=== PATIENT | female | born 1965 | race Caucasian/White ===

== ENCOUNTER 2019-08-23 06:38 | Emergency (ER) | payer BC ==
[2019-08-23 07:26] LABS: Absolute Lymphocytes (CBC) 2.2 K/uL (0.7-4.9); Hematocrit 42.5 % (36.0-45.0); MPV 7.5 fL (7.6-11.3); RBC Red Blood Cell Count 4.54 M/uL (3.86-4.86)
[2019-08-23 07:38] LABS: Protime INR 0.93
[2019-08-23 07:50] LABS: ALT/SGPT 26 U/L (12-78); AST/SGOT 13 U/L (15-37); Albumin 3.5 g/dL (3.4-5.0); Alkaline Phosphatase 87 U/L (45-117); BUN Blood Urea Nitrogen 19 mg/dL (7-18); Bicarbonate 26 mmol/L (21-32); Bilirubin Direct 0.1 mg/dL (0-0.2); Bilirubin Total 0.3 mg/dL (0.2-1.0); Glucose Level 98 mg/dL (74-106); Magnesium 1.9 mg/dL (1.8-2.4); NT PRO-BNP 24 pg/mL (<125); Potassium 4.4 mmol/L (3.5-5.1); Protein, Total 6.1 g/dL (6.4-8.2); Sodium Level 141 mmol/L (136-145); Troponin (Emerg Dept Use Only) < 0.02 ng/mL (0.0-0.045)
--- NOTE | 2019-08-23 07:55 | RAD REPORT ---
EXAM DESCRIPTION: Ronit Single View08/23/2019 7:45 am CLINICAL HISTORY: Chest pain COMPARISON: none FINDINGS: The lungs are hyperaerated. The lungs appear clear of acute infiltrate. The heart is normal size IMPRESSION: Hyperaerated lungs may indicate COPD.
--- NOTE | 2019-08-23 08:07 | ER ---
Nurse's Notes [facility] Name: Pricila Whitley Age: 54 yrs Sex: Female : 1965 Arrival Date: 08/23/2019 Time: 06:42 Bed 20 Private MD: Diagnosis: Shortness of breath;Muscle spasm of back Presentation: 08/22 06:57 Chief complaint: Patient states: Shoulder pain radiating to the left arm. Patient C/O ao occasional chest pain, SOB. Coronavirus screen: Proceed with normal triage. Ebola Screen: Patient negative for fever greater than or equal to 101.5 degrees Fahrenheit, and additional compatible Ebola Virus Disease symptoms Patient denies exposure to infectious person. Patient denies travel to an Ebola-affected area in the 21 days before illness onset. Initial Sepsis Screen: Does the patient meet any 2 criteria? No. Patient's initial sepsis screen is negative. Does the patient have a suspected source of infection? No. Patient's initial sepsis screen is negative. Risk Assessment: Do you want to hurt yourself or someone else? Patient reports no desire to harm self or others. Onset of symptoms was August 22, 2019 at 06:00. 06:57 Method Of Arrival: Ambulatory ao 06:57 Acuity: AMERICO 3 ao Historical: - Allergies: 07:11 Benadryl; ao - Home Meds: 07:11 meloxicam oral oral [Active]; Vitamin B-12 Oral [Active]; Vitamin D Oral [Active]; ao Calcium Carbonate Oral [Active]; - PMHx: 07:14 Anemia; ao - PSHx: 07:11 Appendectomy; Cholecystectomy; Hysterectomy; ao - Immunization history:: Adult Immunizations up to date. - Social history:: Smoking status: Patient reports the use of cigarette tobacco products, smokes one pack cigarettes per day. Screenin:06 Abuse screen: Denies threats or abuse. Denies injuries from another. Nutritional ao screening: No deficits noted. Tuberculosis screening: No symptoms or risk factors identified. Fall Risk None identified. Assessment: 07:05 General: Appears in no apparent distress. comfortable, Behavior is calm, cooperative. rb1 Pain: Complains of pain in bilateral shoulders Pain radiates to left arm Pain currently is 4 out of 10 on a pain scale. Neuro: Level of Consciousness is awake, alert, obeys commands, Oriented to person, place, time, situation. Cardiovascular: Capillary refill < 3 seconds. Respiratory: Airway is patent Respiratory effort is even, unlabored, Respiratory pattern is regular, symmetrical. Respiratory: Reports shortness of breath occasionally. GI: No signs and/or symptoms were reported involving the gastrointestinal system. : No signs and/or symptoms were reported regarding the genitourinary system. Derm: Skin is pink, warm \T\ dry. 08:05 Reassessment: Patient appears in no apparent distress at this time. No changes from rb1 previously documented assessment. Vital Signs: 06:57 BP 108 / 73; Pulse 80; Resp 20; Temp 98.3(O); Pulse Ox 99% on R/A; Weight 74.84 kg; ao Height 5 ft. 6 in. (167.64 cm); Pain 7/10; 07:15 BP 109 / 73; Pulse 79; Resp 14; Pulse Ox 97% on R/A; Pain 4/10; rb1 08:15 BP 107 / 70; Pulse 78; Resp 13; Pulse Ox 100% on R/A; rb1 06:57 Body Mass Index 26.63 (74.84 kg, 167.64 cm) ao ED Course: 06:42 Patient arrived in ED. ds1 06:45 Husam Cooley PA is PHCP. jr8 06:45 Ervin Schwartz MD is Attending Physician. jr8 07:05 Triage completed. ao 07:05 Arm band placed on right wrist. Patient placed in an exam room, on pulse oximetry, ao Patient notified of wait time. 07:08 Judy Simmons, RN is Primary Nurse. rb1 07:14 Patient has correct armband on for positive identification. Pulse ox on. NIBP on. ao 07:15 Inserted saline lock: 22 gauge in right antecubital area, using aseptic technique. rb1 Blood collected. 07:45 XRAY Chest (1 view) In Process Unspecified. EDMS 08:40 No provider procedures requiring assistance completed. IV discontinued, intact, rb1 bleeding controlled, No redness/swelling at site. Pressure dressing applied. Administered Medications: 08:14 Drug: TORadol - Ketorolac 15 mg Route: IVP; Site: right antecubital; rb1 08:30 Follow up: Response: No adverse reaction rb1 Outcome: 08:06 Discharge ordered by . jr8 08:40 Discharged to home ambulatory. rb1 08:40 Condition: stable 08:40 Discharge instructions given to patient, Instructed on discharge instructions, follow up and referral plans. medication usage, Demonstrated understanding of instructions, follow-up care, medications, Prescriptions given X 1. 08:46 Patient left the ED. rb1 Signatures: Dispatcher [employer] [facility] LealViola ds1 Husam Cooley PA PA jr8 Judy Simmons RN RN rb1 Satnam Pitt RN RN ao
--- NOTE | 2019-08-23 08:07 | EDPHYS ---
Physician Documentation [facility] Name: Pricila Whitley Age: 54 yrs Sex: Female : 1965 Arrival Date: 08/23/2019 Time: 06:42 Bed 20 Private MD: ED Physician Ervin Schwartz HPI: 08/22 06:55 This 54 yrs old Female presents to ER via Unassigned with complaints of jr8 Shortness of breath/Shoulder Blade Pain-L Arm Pain. 06:55 The patient has shortness of breath with light activity. Onset: The symptoms/episode jr8 began/occurred gradually, 2 week(s) ago. Duration: The symptoms are intermittent. The patient's shortness of breath is aggravated by light activity. Associated signs and symptoms: Pertinent positives: pain between the shoulder blades . Severity of symptoms: At their worst the symptoms were moderate in the emergency department the symptoms are unchanged. The patient has not experienced similar symptoms in the past. The patient has not recently seen a physician. Historical: - Allergies: 07:11 Benadryl; ao - Home Meds: 07:11 meloxicam oral oral [Active]; Vitamin B-12 Oral [Active]; Vitamin D Oral [Active]; ao Calcium Carbonate Oral [Active]; - PMHx: 07:14 Anemia; ao - PSHx: 07:11 Appendectomy; Cholecystectomy; Hysterectomy; ao - Immunization history:: Adult Immunizations up to date. - Social history:: Smoking status: Patient reports the use of cigarette tobacco products, smokes one pack cigarettes per day. ROS: 06:55 Eyes: Negative for injury, pain, redness, and discharge, ENT: Negative for injury, jr8 pain, and discharge, Neck: Negative for injury, pain, and swelling, Cardiovascular: Negative for chest pain, palpitations, and edema, Abdomen/GI: Negative for abdominal pain, nausea, vomiting, diarrhea, and constipation, MS/Extremity: Negative for injury and deformity, Skin: Negative for injury, rash, and discoloration, Neuro: Negative for headache, weakness, numbness, tingling, and seizure. 06:55 Respiratory: Positive for shortness of breath. 06:55 Back: Positive for pain at rest, pain with movement, of the left scapular area and right scapular area. Exam: 06:55 Eyes: Pupils equal round and reactive to light, extra-ocular motions intact. Lids and jr8 lashes normal. Conjunctiva and sclera are non-icteric and not injected. Cornea within normal limits. Periorbital areas with no swelling, redness, or edema. ENT: Nares patent. No nasal discharge, no septal abnormalities noted. Tympanic membranes are normal and external auditory canals are clear. Oropharynx with no redness, swelling, or masses, exudates, or evidence of obstruction, uvula midline. Mucous membranes moist. Neck: Trachea midline, no thyromegaly or masses palpated, and no cervical lymphadenopathy. Supple, full range of motion without nuchal rigidity, or vertebral point tenderness. No Meningismus. Chest/axilla: Normal chest wall appearance and motion. Nontender with no deformity. No lesions are appreciated. Cardiovascular: Regular rate and rhythm with a normal S1 and S2. No gallops, murmurs, or rubs. Normal PMI, no JVD. No pulse deficits. Respiratory: Lungs have equal breath sounds bilaterally, clear to auscultation and percussion. No rales, rhonchi or wheezes noted. No increased work of breathing, no retractions or nasal flaring. Abdomen/GI: Soft, non-tender, with normal bowel sounds. No distension or tympany. No guarding or rebound. No evidence of tenderness throughout. Skin: Warm, dry with normal turgor. Normal color with no rashes, no lesions, and no evidence of cellulitis. MS/ Extremity: Pulses equal, no cyanosis. Neurovascular intact. Full, normal range of motion. Neuro: Awake and alert, GCS 15, oriented to person, place, time, and situation. Cranial nerves II-XII grossly intact. Motor strength 5/5 in all extremities. Sensory grossly intact. Cerebellar exam normal. Normal gait. 06:55 Back: pain, that is moderate, of the left scapular area and right scapular area, ROM is painful, normal spinal alignment noted, vertebral tenderness, is not appreciated, palpated pain felt by patient reproduces what she has been feeling . Vital Signs: 06:57 BP 108 / 73; Pulse 80; Resp 20; Temp 98.3(O); Pulse Ox 99% on R/A; Weight 74.84 kg; ao Height 5 ft. 6 in. (167.64 cm); Pain 7/10; 07:15 BP 109 / 73; Pulse 79; Resp 14; Pulse Ox 97% on R/A; Pain 4/10; rb1 08:15 BP 107 / 70; Pulse 78; Resp 13; Pulse Ox 100% on R/A; rb1 06:57 Body Mass Index 26.63 (74.84 kg, 167.64 cm) ao MDM: 06:45 Patient medically screened. jr8 08:05 Differential diagnosis: Anxiety Reaction Bronchitis Myocardial Infarction pneumonia, jr8 Pneumothorax pulmonary edema, Pulmonary Embolism Sepsis Unstable Angina. Data reviewed: vital signs, nurses notes, lab test result(s), EKG, radiologic studies, plain films. Data interpreted: Pulse oximetry: on room air is 97 %. Interpretation: normal. Counseling: I had a detailed discussion with the patient and/or guardian regarding: the historical points, exam findings, and any diagnostic results supporting the discharge/admit diagnosis, lab results, radiology results, the need for outpatient follow up, a family practitioner, to return to the emergency department if symptoms worsen or persist or if there are any questions or concerns that arise at home. 08/22 06:55 Order name: Basic Metabolic Panel; Complete Time: 07:50 08/22 06:55 Order name: CBC with Diff; Complete Time: 07:40 08/22 06:55 Order name: LFT's; Complete Time: 07:50 08/22 06:55 Order name: Magnesium; Complete Time: 07:50 08/22 06:55 Order name: NT PRO-BNP; Complete Time: 07:50 08/22 06:55 Order name: PT-INR; Complete Time: 07:50 08/22 06:55 Order name: Troponin (emerg Dept Use Only); Complete Time: 07:50 08/22 06:55 Order name: XRAY Chest (1 view); Complete Time: 07:57 08/22 06:55 Order name: EKG; Complete Time: 06:55 08/22 06:55 Order name: Cardiac monitoring; Complete Time: 07:32 08/22 06:55 Order name: EKG - Nurse/Tech; Complete Time: 07:32 08/22 06:55 Order name: IV Saline Lock; Complete Time: 07:23 08/22 06:55 Order name: DD; Complete Time: 07:50 8 08/22 06:55 Order name: Labs collected and sent; Complete Time: 07:23 8 08/22 06:55 Order name: O2 Per Protocol; Complete Time: :08/22 06:55 Order name: O2 Sat Monitoring; Complete Time: 07: Administered Medications: 08:14 Drug: TORadol - Ketorolac 15 mg Route: IVP; Site: right antecubital; rb1 08:30 Follow up: Response: No adverse reaction rb1 Disposition: 23:16 Co-signature as Attending Physician, Ervin Schwartz MD. rn Disposition: 08/23/19 08:06 Discharged to Home. Impression: Shortness of breath, Muscle spasm of back. - Condition is Stable. - Discharge Instructions: Back Pain, Adult, Muscle Cramps and Spasms, Shortness of Breath. - Prescriptions for Robaxin 500 mg Oral Tablet - take 2 tablet by ORAL route every 6 hours As needed; 40 tablet. - Medication Reconciliation Form, Thank You Letter, Antibiotic Education, Prescription Opioid Use form. - Follow up: Private Physician; When: 5 - 6 days; Reason: Recheck today's complaints, Continuance of care, Re-evaluation by your physician. - Problem is new. - Symptoms have improved. - Notes: Continue meloxicam at home Signatures: Dispatcher [employer] EDMS Ervin Schwartz MD MD rn Roszak, Josh, PA PA jr8 Judy Simmons RN RN rb1 Ortiz, Alex RN RN ao Corrections: (The following items were deleted from the chart) 08:46 08:06 08/23/2019 08:06 Discharged to Home. Impression: Shortness of breath; Muscle rb1 spasm of back. Condition is Stable. Forms are Medication Reconciliation Form, Thank You Letter, Antibiotic Education, Prescription Opioid Use. Follow up: Private Physician; When: 5 - 6 days; Reason: Recheck today's complaints, Continuance of care, Re-evaluation by your physician. Problem is new. Symptoms have improved. jr8
[2019-08-23] MEDS ORDERED: KETOROLAC 30 MG/ML INJ ONE (08:18)
--- NOTE | 2019-08-23 12:59 | EKG ---
Test Date: 2019-08-23 Test Time: 08:38:51 [employer]: VEE MEASUREMENT RESULTS: Intervals: Rate: 74 DE: 144 QRSD: 80 QT: 386 QTc: 428 [place]: P: 58 DE: 144 QRS: 39 T: 51 INTERPRETIVE STATEMENTS: Normal sinus rhythm Septal infarct, age undetermined Abnormal ECG No previous ECG available for comparison Electronically Signed On 08-23-19 12:58:15 CDT by Kyree Kaplan
[2019-08-23 20:05] VITALS: TEMP 98.3
[2019-08-23 20:08] VITALS: BP 107/70; O2SAT 100
== END 2019-08-23 08:46 | disposition home or self-care (01) ==
LOC: ER 06:38
DX: M62.830 Muscle spasm of back (principal); F17.210 Nicotine dependence, cigarettes, uncomplicated; Z88.8 Allergy status to other drugs, medicaments and biological substances
CPT/HCPCS: 36415; 71045; 80048; 80076; 83735; 83880; 84484; 85025; 85379; 85610; 93005; 96374; 99284

== ENCOUNTER 2021-10-10 02:13 | Emergency (ER) | payer BC ==
--- OUTSIDE RECORDS SUMMARY | 2021-10-10 02:15 | XMS REPORT | Continuity of Care Document ---
:1965 Author Organization [facility] Address [address] [place] [address] [address] [place] [address] Care Team Providers Name Role Phone TSERING Primary Care Physician Unavailable DR TSERING Attending Clinician Unavailable [phone] Attending Clinician Unavailable MARTA Attending Clinician Unavailable ELENA Attending Clinician Unavailable MIRNA Attending Clinician Unavailable MD Tay PARKER Attending Clinician Unavailable DR TSERING Admitting Clinician Unavailable ELENA Admitting Clinician Unavailable MD Tay PARKER Admitting Clinician Unavailable Payers Payer Name Policy Type Policy Number Effective Date Expiration Date S marychuy BLUE [employer] BLUE [id number] SHIELD - OP Problems This patient has no known problems. Allergies, Adverse Reactions, Alerts This patient has no known allergies or adverse reactions. Medications This patient has no known medications. Procedures This patient has no known procedures. Encounters Start End Encounter Admission Attending Care Care Encounter Source Date/Time Date/Time Type Type Clinicians Facility Department ID 2021-07-31 Outpatient [facility] [id number] [place] 09:12:19 [id number] [facility] 2021-07-31 2021-07-31 Outpatient [facility]GIO [facility] [id number] [place] 09:12:00 09:12:00 [id number] [facility] 2021-05-12 2021-05-12 Out[facility] [id number] [address] [place] [address] 00:00:00 00:00:00 [place] [address] 2021-05-12 2021-05-12 Outpatient [facility] [id number] [place] 00:00:00 00:00:00 [place] [address] 2021-05-12 2021-05-12 Outpatient [facility] [id number] [place] 00:00:00 00:00:00 [place] [address] 2021-05-12 2021-05-12 Outpatient PARSLEY, [facility] [id number] [place] 00:00:00 00:00:00 [place] [address] 2021-05-12 2021-05-12 Outpatient PARSLEY, [facility] [id number] [place] 00:00:00 00:00:00 [place] [address] 2021-05-12 2021-05-12 Outpatient PARSLEY, [facility] [id number] [place] 00:00:00 00:00:00 [place] [address] 2020-04-29 2020-04-29 Outpatient MAFFET, [facility] [id number] [place] 00:00:00 00:00:00 CATHY [address] 2020-03-17 2020-03-17 Outpatient MAFFET, [facility] [id number] [place] 00:00:00 00:00:00 CATHY [address] 2020-02-04 2020-02-04 Outpatient MAFFET, [facility] [id number] [place] 00:00:00 00:00:00 CATHY [address] 2020-01-07 2020-01-07 Outpatient MAFFET, [facility] [id number] [place] 00:00:00 00:00:00 CATHY [address] 2019-12-17 2019-12-17 Outpatient MAFFET, [facility] [id number] [place] 00:00:00 00:00:00 CATHY [address] 2019-11-26 2019-11-26 Outpatient PELUSE, [facility] [id number] [place] 00:00:00 00:00:00 ALESHA [address] 2019-11-16 2019-11-16 Outpatient MAFFET, [facility] [id number] [place] 00:00:00 00:00:00 CATHY [address] 2019-11-14 2019-11-14 Outpatient MAFFET, [facility] [id number] [place] 00:00:00 00:00:00 CATHY [address] 2019-10-11 2019-10-11 Outpatient MAFFET, [facility] [id number] [place] 00:00:00 00:00:00 CATHY [address] 2019-10-11 2019-10-11 Outpatient MAFFET, [facility] [id number] [place] 00:00:00 00:00:00 CATHY [address] 2019-10-11 2019-10-11 Outpatient MAFFET, [facility] [id number] [place] 00:00:00 00:00:00 CATHY [address] 2019-10-11 2019-10-11 Outpatient SOLAFET, [facility] [id number] [place] 00:00:00 00:00:00 CATHY [address] Results Test Description Test Time Test Comments Results Result Comments Source SARS-CoV-2 (COVID-19) RNA [Presence] in Respiratory sp ecimen by 2019-11-15 00:49:53 MADELIN with probe detection Test Item Value Reference Range Interpretation Comme nts SARS-CoV-2 (COVID-19) RNA [Presence] in Respiratory Not detected No t-Detected specimen by MADELIN with probe detection (test code = 04503-6)
[2021-10-10 02:56] LABS: Urine Blood Trace-lysed (Negative); Urine Glucose Negative (Negative); Urine Protein Negative (Negative); Urine Specific Gravity >=1.030 (1.005-1.030); Urine pH 5.5 (5.0-7.0)
[2021-10-10] MEDS ORDERED: NA CHLORIDE 0.9% 1,000 ML ONE (03:03)
[2021-10-10 03:09] LABS: Absolute Lymphocytes (CBC) 0.4 K/uL (0.7-4.9); Hematocrit 38.9 % (36.0-45.0); Lymphocytes % 9.4 % (15.3-44.8); MPV 7.4 fL (7.6-11.3); RBC Red Blood Cell Count 4.25 M/uL (3.86-4.86)
[2021-10-10 03:16] LABS: Urine Bacteria 20-50 /HPF (<20); Urine Mucus 2+ /HPF (NONE SEEN); Urine RBC <5 /HPF (NONE SEEN)
[2021-10-10 03:21] LABS: Albumin 3.7 g/dL (3.4-5.0); Bilirubin Total 0.3 mg/dL (0.2-1.0); Potassium 3.9 mmol/L (3.5-5.1); Protein, Total 6.2 g/dL (6.4-8.2)
[2021-10-10] MEDS ORDERED: ONDANSETRON 4 MG/2 ML VIAL ONE (03:30)
[2021-10-10] MEDS ORDERED: MORPHINE 4 MG/ML SYR ONE (03:30)
[2021-10-10] MEDS ORDERED: CEFTRIAXONE 1000 MG/VIAL ONE (04:02)
[2021-10-10] MEDS ORDERED: PROMETHAZINE INJ 25 MG/ML AMP ONE (04:10)
--- NOTE | 2021-10-10 06:10 | EDPHYS ---
Physician Documentation [facility] Name: Pricila Whitley Age: 56 yrs Sex: Female : 1965 Arrival Date: 10/10/2021 Time: 02:16 Bed 18 Private MD: ED Physician Aditya Santiago HPI: 10/10 02:30 This 56 yrs old Female presents to ER via Ambulatory with complaints of Low Back Pain. mh7 02:30 The patient complains of pain in the left flank and right flank. The pain does not mh7 radiate. Onset: The symptoms/episode began/occurred yesterday. Modifying factors: The symptoms are alleviated by nothing. the symptoms are aggravated by nothing. Associated signs and symptoms: Pertinent positives: dysuria, urinary frequency, Pertinent negatives: diarrhea, dizziness, fever, headache, hematuria, nausea, pain radiating to the lower extremities, vomiting. Severity of pain: At its worst the pain was moderate last night, in the emergency department the pain is unchanged. Historical: - Allergies: 02:34 Benadryl; lp1 - Home Meds: 02:34 Adderall XR Oral [Active]; Trazodone Oral [Active]; lp1 - PMHx: 02:34 Anemia; lp1 - PSHx: 02:34 hysterectomy; Appendectomy; Cholecystectomy; lp1 - Immunization history:: Adult Immunizations up to date, Client reports receiving the 2nd dose of the Covid vaccine. - Social history:: Smoking status: Patient reports the use of cigarette tobacco products, smokes one pack cigarettes per day. ROS: 02:30 Constitutional: Negative for fever, chills, and weight loss, Eyes: Negative for injury, mh7 pain, redness, and discharge, ENT: Negative for injury, pain, and discharge, Neck: Negative for injury, pain, and swelling, Cardiovascular: Negative for chest pain, palpitations, and edema, Respiratory: Negative for shortness of breath, cough, wheezing, and pleuritic chest pain, Abdomen/GI: Negative for abdominal pain, nausea, vomiting, diarrhea, and constipation, MS/Extremity: Negative for injury and deformity, Skin: Negative for injury, rash, and discoloration, Neuro: Negative for headache, weakness, numbness, tingling, and seizure, Psych: Negative for depression, anxiety, suicide ideation, homicidal ideation, and hallucinations, Allergy/Immunology: Negative for hives, rash, and allergies, Endocrine: Negative for neck swelling, polydipsia, polyuria, polyphagia, and marked weight changes, Hematologic/Lymphatic: Negative for swollen nodes, abnormal bleeding, and unusual bruising. Exam: 02:30 Head/Face: Normocephalic, atraumatic. Eyes: Pupils equal round and reactive to light, mh7 extra-ocular motions intact. Lids and lashes normal. Conjunctiva and sclera are non-icteric and not injected. Cornea within normal limits. Periorbital areas with no swelling, redness, or edema. Neck: Trachea midline, no thyromegaly or masses palpated, and no cervical lymphadenopathy. Supple, full range of motion without nuchal rigidity, or vertebral point tenderness. No Meningismus. Chest/axilla: Normal chest wall appearance and motion. Nontender with no deformity. No lesions are appreciated. Cardiovascular: Regular rate and rhythm with a normal S1 and S2. No gallops, murmurs, or rubs. Normal PMI, no JVD. No pulse deficits. Respiratory: Lungs have equal breath sounds bilaterally, clear to auscultation and percussion. No rales, rhonchi or wheezes noted. No increased work of breathing, no retractions or nasal flaring. Abdomen/GI: Soft, non-tender, with normal bowel sounds. No distension or tympany. No guarding or rebound. No evidence of tenderness throughout. 02:30 Skin: Warm, dry with normal turgor. Normal color with no rashes, no lesions, and no evidence of cellulitis. MS/ Extremity: Pulses equal, no cyanosis. Neurovascular intact. Full, normal range of motion. Neuro: Awake and alert, GCS 15, oriented to person, place, time, and situation. Cranial nerves II-XII grossly intact. Motor strength 5/5 in all extremities. Sensory grossly intact. Cerebellar exam normal. Normal gait. Psych: Awake, alert, with orientation to person, place and time. Behavior, mood, and affect are within normal limits. 02:30 Constitutional: The patient appears in no acute distress, alert, awake, uncomfortable. 02:30 Back: normal spinal alignment noted, CVA tenderness, that is mild, is noted on the right, is noted on the left, vertebral tenderness, is not appreciated, muscle spasm, is not present. Vital Signs: 02:33 BP 110 / 67; Pulse 95; Resp 18; Temp 100.2(O); Pulse Ox 99% on R/A; Weight 74.84 kg lp1 (R); Height 5 ft. 10 in. (177.80 cm); Pain 8/10; 03:28 Pulse 102; Resp 18; Pulse Ox 100% on R/A; kd3 03:53 Pulse 92; Pulse Ox 97% ; kd3 05:55 Temp 98.9(O); kd3 02:33 Body Mass Index 23.67 (74.84 kg, 177.80 cm) lp1 MDM: 06:07 Differential diagnosis: nephrolithiasis, pyelonephritis, UTI. Data reviewed: vital [facility] signs, nurses notes, lab test result(s), CBC, electrolytes, urinalysis, radiologic studies, CT scan. Data interpreted: Pulse oximetry: on room air is 97 %. Interpretation: normal. Counseling: I had a detailed discussion with the patient and/or guardian regarding: the historical points, exam findings, and any diagnostic results supporting the discharge/admit diagnosis, lab results, radiology results, the need for outpatient follow up, to return to the emergency department if symptoms worsen or persist or if there are any questions or concerns that arise at home. Response to treatment: the patient's symptoms have resolved after treatment, the patient's blood pressure is in an acceptable range, mental status has returned to baseline, the patient no longer shows bradycardia, the patient is not short of breath, the patient is not tachycardic, the patient's pain is gone, the patient's temperature has normalized. Refusal of service: The patient/guardian displays adequate decision making capability and despite a detailed discussion of alternatives, benefits, risks, and consequences refuses: Admission to the hospital for further work-up and treatment. ED course: Feels better, well appearing, NAD, VSS, no focal neurological deficits. Discussed all test results and findings. Patient requested to be discharged from the ER.. 06:09 Patient medically screened. [facility] 10/10 02:36 Order name: CBC with Diff; Complete Time: 03:52 [facility] 10/10 02:36 Order name: CMP; Complete Time: 03:52 [facility] 10/10 02:36 Order name: Urine Microscopic Only; Complete Time: 03:52 lp1 10/10 02:56 Order name: Urine Dipstick-Ancillary; Complete Time: 03:52 EDMS 10/10 03:19 Order name: Urine Culture EDND 10/10 03:54 Order name: CT Abd/Pelvis - Without Contrast [facility] 10/10 02:36 Order name: Urine Dipstick-Ancillary (obtain specimen); Complete Time: 03:03 lp1 10/10 02:36 Order name: IV Saline Lock; Complete Time: 03:03 lp1 10/10 02:36 Order name: Labs collected and sent; Complete Time: 03:03 lp1 Administered Medications: 03:04 Drug: NS 0.9% 1000 ml Route: IV; Rate: 1000 ml; Site: right antecubital; kd3 06:23 Follow up: Response: No adverse reaction; IV Status: Completed infusion kd3 03:27 Drug: morphine 4 mg Route: IVP; Infused Over: 4 mins; Site: right antecubital; kd3 06:23 Follow up: Response: No adverse reaction kd3 03:27 Drug: Zofran (Ondansetron) 4 mg Route: IVP; Site: right antecubital; kd3 06:23 Follow up: Response: No adverse reaction kd3 04:39 Drug: Rocephin (cefTRIAXone) 1 grams Route: IV; Rate: per protocol; Site: right kd3 antecubital; 06:22 Follow up: Response: No adverse reaction; IV Status: Completed infusion kd3 04:40 Drug: Phenergan (promethazine) 12.5 mg Route: IVP; Site: right antecubital; kd3 06:21 Follow up: Response: No adverse reaction; Nausea is decreased kd3 Disposition Summary: 10/10/21 06:09 Discharge Ordered Location: Home [facility] Problem: an acute exacerbation [facility] Symptoms: have improved [facility] Condition: Stable [facility] Diagnosis - Pyelonephritis [facility] Followup: [facility] - With: Private Physician - When: 1 - 2 days - Reason: Worsening of condition, Recheck today's complaints, Continuance of care, Re-evaluation by your physician Discharge Instructions: - Discharge Summary Sheet [facility] - Pyelonephritis, Adult, [id number] [facility] Forms: - Medication Reconciliation Form [facility] - Thank You Letter [facility] - Antibiotic Education [facility] - Prescription Opioid Use [facility] Prescriptions: - ketorolac 10 mg Oral tablet - take 1 tablet by ORAL route every 6-8 hours As needed not to exceed 40 mg in [facility] 24hrs; 25 tablet; Refills: 0, Product Selection Permitted - ondansetron 4 mg Oral tablet,disintegrating - place 1 tablet by TRANSLINGUAL route every 8 hours As needed; 10 tablet; [facility] Refills: 0, Product Selection Permitted - levofloxacin 750 mg Oral Tablet - take 1 tablet by ORAL route once daily for 7 days; 7 tablet; Refills: 0, [facility] Product Selection Permitted Signatures: Dispatcher [employer] EDND Shelley Isaac RN RN lp1 Aditya Santiago MD MD 7 Dayanara Clark RN RN kd3
--- NOTE | 2021-10-10 06:10 | ER ---
Nurse's Notes [facility] Name: Pricila Whitley Age: 56 yrs Sex: Female : 1965 Arrival Date: 10/10/2021 Time: 02:16 Bed 18 Private MD: Diagnosis: Pyelonephritis Presentation: 10/10 02:33 Chief complaint: Patient states: Low back pain that began 1 day ago, reports burning lp1 with urination, urinary frequency, chills. Coronavirus screen: At this time, the client does not indicate any symptoms associated with coronavirus-19. Ebola Screen: No symptoms or risks identified at this time. Initial Sepsis Screen: Does the patient meet any 2 criteria? No. Patient's initial sepsis screen is negative. Does the patient have a suspected source of infection? No. Patient's initial sepsis screen is negative. Risk Assessment: Do you want to hurt yourself or someone else? Patient reports no desire to harm self or others. Onset of symptoms was October 10, 2021. 02:33 Method Of Arrival: Ambulatory lp1 02:33 Acuity: AMERICO 3 lp1 Historical: - Allergies: 02:34 Benadryl; lp1 - Home Meds: 02:34 Adderall XR Oral [Active]; Trazodone Oral [Active]; lp1 - PMHx: 02:34 Anemia; lp1 - PSHx: 02:34 hysterectomy; Appendectomy; Cholecystectomy; lp1 - Immunization history:: Adult Immunizations up to date, Client reports receiving the 2nd dose of the Covid vaccine. - Social history:: Smoking status: Patient reports the use of cigarette tobacco products, smokes one pack cigarettes per day. Screenin:05 Abuse screen: Denies threats or abuse. Denies injuries from another. Nutritional kd3 screening: No deficits noted. Tuberculosis screening: No symptoms or risk factors identified. Fall Risk IV access (20 points). Assessment: 03:04 General: Appears uncomfortable, Behavior is calm, cooperative. Pain: Complains of pain kd3 in flank. Neuro: Level of Consciousness is awake, alert, obeys commands, Oriented to person, place, time, situation. Cardiovascular: Patient's skin is warm and dry. Respiratory: Airway is patent Trachea midline Respiratory effort is even, unlabored. Vital Signs: 02:33 BP 110 / 67; Pulse 95; Resp 18; Temp 100.2(O); Pulse Ox 99% on R/A; Weight 74.84 kg lp1 (R); Height 5 ft. 10 in. (177.80 cm); Pain 8/10; 03:28 Pulse 102; Resp 18; Pulse Ox 100% on R/A; kd3 03:53 Pulse 92; Pulse Ox 97% ; kd3 05:55 Temp 98.9(O); kd3 02:33 Body Mass Index 23.67 (74.84 kg, 177.80 cm) lp1 ED Course: 02:16 Patient arrived in ED. bp1 02:21 Dayanara Clark, RN is Primary Nurse. kd3 02:34 Triage completed. lp1 02:34 Arm band placed on. lp1 02:39 Aditya Santiago MD is Attending Physician. mh7 03:05 Patient has correct armband on for positive identification. kd3 03:05 No provider procedures requiring assistance completed. Inserted saline lock: 20 gauge kd3 in right antecubital area, using aseptic technique. Blood collected. 04:51 CT Abd/Pelvis - Without Contrast In Process Unspecified. EDMS 06:22 IV discontinued, intact, bleeding controlled, No redness/swelling at site. Pressure kd3 dressing applied. Administered Medications: 03:04 Drug: NS 0.9% 1000 ml Route: IV; Rate: 1000 ml; Site: right antecubital; kd3 06:23 Follow up: Response: No adverse reaction; IV Status: Completed infusion kd3 03:27 Drug: morphine 4 mg Route: IVP; Infused Over: 4 mins; Site: right antecubital; kd3 06:23 Follow up: Response: No adverse reaction kd3 03:27 Drug: Zofran (Ondansetron) 4 mg Route: IVP; Site: right antecubital; kd3 06:23 Follow up: Response: No adverse reaction kd3 04:39 Drug: Rocephin (cefTRIAXone) 1 grams Route: IV; Rate: per protocol; Site: right kd3 antecubital; 06:22 Follow up: Response: No adverse reaction; IV Status: Completed infusion kd3 04:40 Drug: Phenergan (promethazine) 12.5 mg Route: IVP; Site: right antecubital; kd3 06:21 Follow up: Response: No adverse reaction; Nausea is decreased kd3 Medication: 02:35 VIS not applicable for this client. lp1 Outcome: 06:09 Discharge ordered by . Karla 06:22 Discharged to home ambulatory. kd3 06:22 Condition: stable 06:22 Discharge instructions given to patient, family, Instructed on discharge instructions, follow up and referral plans. Demonstrated understanding of instructions, follow-up care, medications, Prescriptions given X 3. 06:23 Patient left the ED. kd3 Signatures: Dispatcher [employer] EDShelley Virk, RN RN lp1 Jelena Ewing Maurice, MD MD 7 Dayanara Clark RN RN kd3
[2021-10-10 06:42] VITALS: BP 110/67
[2021-10-10 06:47] VITALS: O2SAT 97
[2021-10-10 06:48] VITALS: TEMP 98.9
--- NOTE | 2021-10-12 12:47 | RAD REPORT ---
EXAM DESCRIPTION: CT - Abdomen Pelvis Wo Contrast - 10/10/2021 6:52 am CLINICAL HISTORY: 56 years Female Flank pain, kidney stone suspected TECHNIQUE: Axial CT imaging of the abdomen and pelvis was performed without oral or intravenous cont rast. Sagittal and coronal reconstructed images were then performed. The CT study is performed acco rding to ALARA (as low as reasonably achievable) or ALARA/IMAGE GENTLY, with automatic adjustment of mA and/or kV according to patient size. Performed on: 10/10/2021 at 4:46 AM COMPARISON: None. FINDINGS: Lung bases: The lung bases are clear. There is a very small sliding-type hiatal hernia. Th ere is questionable mild esophageal wall thickening involving the distal esophagus. Liver: The liver is top normal in size and is normal in configuration and attenuation. No focal hepat ic abnormalities are appreciated on this unenhanced scan. Liver attenuation is within normal limits. Spleen: The spleen is normal in size, configuration and attenuation. No focal splenic abnormalities a re appreciated on this unenhanced scan. There is a punctate splenic calcification. Gallbladder and bile duct: The gallbladder is surgically absent. There is no biliary ductal dilatat ion. Pancreas: The pancreas is grossly normal in size and configuration. Adrenal Glands: The adrenal glands are normal in size and configuration. Kidneys: The kidneys are normal in size and configuration. There is no evidence of hydronephrosis. Th ere is no evidence of nephrolithiasis. No focal renal abnormalities are identified. Stomach: The stomach is grossly normal. There is a small hiatal hernia. As noted above, there is ques tionable distal esophageal wall thickening. Bowel: The bowel gas pattern is non specific and non obstructive. Appendix: The appendix is not clearly visualized on this examination. There is no CT evidence to sugg est acute appendicitis. Free air: There is no evidence of free air. Free fluid: There is no evidence of free fluid. Vasculature: The aorta is normal in caliber and contour. The inferior vena cava is grossly unremarkab le. Lymphadenopathy: No pathologic lymphadenopathy is identified. Bladder: The bladder is partially distended and smooth in contour. Reproductive: The uterus is surgically absent. Bones: No acute osseous abnormalities are identified. There are degenerative changes along the superi or endplate of S1. There is mild degenerative disc disease at L4-L5. Soft tissues: No acute soft tissue abnormalities are identified. IMPRESSION: 1. No evidence of acute intra-abdominal or intrapelvic pathology. There is no evidence of urinary tract calcification or urinary tract obstruction. 2. There is a small sliding-type hiatal hernia with questionable mild distal esophageal wall thicke leticia. 3. Status post cholecystectomy and hysterectomy. Electronically signed by: Shayy Kruger DO 10/10/2021 5:47 AM CDT Due to temporary technical issues with the PACS/Fluency reporting system, reports are being signed by the in house radiologist without review as a courtesy to ensure prompt reporting. The interpreting r adiologist is fully responsible for the content of the report.
== END 2021-10-10 06:23 | disposition home or self-care (01) ==
LOC: ER 02:13
DX: N12 Tubulo-interstitial nephritis, not specified as acute or chronic (principal); F17.210 Nicotine dependence, cigarettes, uncomplicated; Z88.8 Allergy status to other drugs, medicaments and biological substances
CPT/HCPCS: 96365; 96361; 87088; 85025; 87086; 36415; 80053; 74176; 96375; 99284; 96366; J2550; J7030; J2405; 81003; 81015

== ENCOUNTER 2023-08-22 13:34 | Emergency (ER) | payer BC ==
[2023-08-22] MEDS ORDERED: ACETAMINOPHEN 500 MG TAB ONE (14:06)
[2023-08-22] MEDS ORDERED: KETOROLAC 30 MG/ML INJ ONE (14:06)
[2023-08-22 14:29] LABS: Absolute Basophils 0.1 K/uL (0-0.5); Absolute Eosinophils 0.4 K/uL (0-0.5); Absolute Lymphocytes (CBC) 2.4 K/uL (0.7-4.9); Absolute Monocytes 0.5 K/uL (0.1-1.3); Absolute Neutrophil 2.3 K/uL (1.8-8.0); Lymphocytes % 42.3 % (15.3-44.8); MCH 31.5 pg (27.0-35.0); MCHC 33.2 g/dL (32.0-36.0); MCV 94.7 fL (80-100); MPV 7.5 fL (7.6-11.3); Monocytes % 8.3 % (3.3-12.3); Neutrophils % 41.4 % (41.7-73.7); Nucleated Red Blood Cells % 0.1 % (0-0); Platelets 394 thou/uL (152-406); RBC Red Blood Cell Count 4.44 M/uL (3.86-4.86); Red Cell Distribution Width 14.8 % (12.1-15.2)
--- NOTE | 2023-08-22 14:29 | RAD REPORT ---
EXAM DESCRIPTION: RAD - Pelvis - 08/22/2023 2:24 pm CLINICAL HISTORY: R hip pain Pain and swelling COMPARISON: No comparisons FINDINGS: No fracture, dislocation or radiographic evidence of AVN. Bilateral hip arthroplasties. IMPRESSION: No acute abnormality seen. Bilateral hip arthroplasties without complication.
[2023-08-22 14:50] LABS: Anion Gap 5.9 mEq/L (5.0-15.0); Potassium 3.9 mEq/L (3.5-5.1)
[2023-08-22 15:12] LABS: Specific Gravity 1.018 (1.005-1.030); Sqamous Epithelial <5 /HPF (None Seen); Urine Bacteria None Seen /HPF (<20); Urine Bilirubin NEGATIVE (Negative); Urine Blood Negative (Negative); Urine Clarity Turbid (Clear); Urine Color Light-Yellow (Yellow); Urine Culture Reflex Order NOT NEEDED; Urine Glucose NEGATIVE (Negative); Urine Ketones NEGATIVE (Negative); Urine Micro Reflex YN NO BILL MICROSCOPIC; Urine Mucus Slight /HPF (None Seen); Urine Nitrite NEGATIVE (Negative); Urine Protein NEGATIVE (Negative); Urine RBC <5 /HPF (None Seen); Urine Urobilinogen Normal (Normal); Urine pH 5.5 (5.0-7.0)
--- NOTE | 2023-08-22 15:14 | EDPHYS ---
Physician Documentation [facility] Name: Pricila Whitley Age: 58 yrs Sex: Female : 1965 Arrival Date: 08/22/2023 Time: 13:34 Bed 7 Private MD: ED Physician Adam Watson HPI: 08/21 13:51 This 58 yrs old Female presents to ER via Wheelchair with complaints of Hip Pain, ec2 Dizziness, Nausea. 13:51 Patient arrives today for evaluation of right hip pain ongoing for several days. ec2 Patient reports pain is worse with movement. Patient reports history of right hip replacement. Patient reports no fevers or chills, no nausea or vomiting. Patient also has some associated nausea. Patient reports no chest pain, difficulty breathing, no abdominal pain. Denies any urinary complaints. Patient specifically concerned about a possible hip infection however denies any infectious symptoms.. Historical: - Allergies: 13:44 Benadryl; as6 - PMHx: 13:44 Anemia; as6 13:45 ADHD; as6 - PSHx: 13:44 Appendectomy; Cholecystectomy; hysterectomy; hip (hysterectomy); hand (Anemia); as6 13:45 Ligation of fallopian tube; as6 - Immunization history:: Adult Immunizations up to date. - Infectious Disease History:: Denies. - Social history:: Smoking status: Patient denies any tobacco usage or history of. ROS: 13:51 Constitutional: as per hpi ec2 Exam: 13:51 Constitutional: GEN: NAD Head: atraumatic Eyes: EOMI Ears: External ears are ec2 normal. CV: regular rate LUNGS: no respiratory distress ABD: non-distended, soft, nontender, no guarding, not rigid SKIN: no evidence of rashes MSK: no evidence of trauma, right hip with TTP, good range of motion, intact distal neurovascular status. No C/C/L-spine TTP NEURO: moves all extremities equally Vital Signs: 13:42 BP 135 / 91; Pulse 89; Resp 18; Temp 98.5(O); Pulse Ox 97% on R/A; Weight 72.57 kg (R); as6 Height 5 ft. 10 in. (R); Pain 6/10; 14:00 BP 129 / 95; Pulse 71; Resp 18; Temp 98.4; Pulse Ox 99% on R/A; db 15:02 BP 125 / 90; Pulse 75; Resp 19; Pulse Ox 99% on R/A; rs5 13:42 Body Mass Index 22.96 (72.57 kg, 177.8 cm) as6 13:42 Pain Scale: Adult as6 MDM: 13:51 Patient medically screened. ec2 13:51 Data reviewed: vital signs. ED course: Patient arrives today for evaluation of right ec2 hip pain. Examination remarkable for well-appearing nontoxic dividual is otherwise in no acute distress with a reassuring musculoskeletal examination. Will obtain lab work, pelvis x-ray. Suspect musculoskeletal pain, additionally considering infection however lower suspicion for this given lack of infectious symptoms and reassuring hemodynamics.. 14:31 ED course: Pelvis x-ray reassuring. No evidence of acute pathology.. ec2 14:43 ED course: CBC reassuring.. ec2 15:13 ED course: Urine w/ leuk esterase, pt w/o significant urinary complaints, will defer ec2 treatment at this time. On reassessment, pt ambulatory w/o issue, in no acute distress, will d/c to home, suspect MSK pain. Return precautions given. . 0506 13:51 Order name: CBC with Diff; Complete Time: 14:43 ec2 05/ 13:51 Order name: BMP; Complete Time: 15:07 ec2 08/21 13:51 Order name: UAM; Complete Time: 15:12 ec2 05/ 13:51 Order name: Pelvis XRAY; Complete Time: 14:31 ec2 Administered Medications: 14:12 Drug: Ketorolac IVP 15 mg IVP once Route: IVP; Site: right antecubital; db 15:23 Follow up: Response: No adverse reaction db 14:12 Drug: Acetaminophen PO 1000 mg PO once Route: PO; db 15:22 Follow up: Response: No adverse reaction db Disposition Summary: 08/22/23 15:14 Discharge Ordered Notes: Location: Home ec2 Condition: Stable ec2 Diagnosis - Pain in right hip ec2 Followup: ec2 - With: Private Physician - When: - Reason: Re-evaluation by your physician Discharge Instructions: - Discharge Summary Sheet bd - Hip Pain ec2 Forms: - SBAR form bd - Medication Reconciliation Form ec2 - Antibiotic Education ec2 - Prescription Opioid Use ec2 - Patient Portal Instructions ec2 - Leadership Thank You Letter ec2 Signatures: Dispatcher [employer] Saurabh Wade RN RN as6 Jodee Cook RN RN db Adam Watson MD MD ec2 Corrections: (The following items were deleted from the chart) 13:52 13:52 CBC+H.LAB.BRZ ordered. EDMS EDMS 13:52 13:52 BASIC METABOLIC PANEL+C.LAB.BRZ ordered. EDMS EDMS 13:52 13:52 Pelvis+RAD.RAD.BRZ ordered. EDMS EDMS 13:52 13:52 Urinalysis W/Microscopic+U.LAB.BRZ ordered. EDMS EDMS 13:55 13:51 ED course: Patient arrives today for evaluation of right hip pain. Examination ec2 remarkable for well-appearing nontoxic dividual is otherwise in no acute distress with a reassuring musculoskeletal examination. Will obtain lab work, pelvis x-ray. Suspect musculoskeletal pain, additionally considering infection however lower suspicion for this.. ec2
--- NOTE | 2023-08-22 15:14 | ER ---
Nurse's Notes [facility] Name: Pricila Whitley Age: 58 yrs Sex: Female : 1965 Arrival Date: 08/22/2023 Time: 13:34 Bed 7 Private MD: Diagnosis: Pain in right hip Presentation: 08/21 13:42 Chief complaint: Patient states: right hip pain, nausea. Coronavirus screen: At this as6 time, the client does not indicate any symptoms associated with coronavirus-19. Ebola Screen: No symptoms or risks identified at this time. Initial Sepsis Screen: Does the patient meet any 2 criteria? No. Patient's initial sepsis screen is negative. Does the patient have a suspected source of infection? No. Patient's initial sepsis screen is negative. Risk Assessment: Do you want to hurt yourself or someone else? Patient reports no desire to harm self or others. Onset of symptoms was August 20, 2023. 13:42 Method Of Arrival: Wheelchair as6 13:42 Acuity: AMERICO 3 as6 Triage Assessment: 13:45 General: Appears uncomfortable, Behavior is calm, cooperative. Pain: Complains of pain as6 in right hip. 15:22 GI: Reports. db Historical: - Allergies: 13:44 Benadryl; as6 - PMHx: 13:44 Anemia; as6 13:45 ADHD; as6 - PSHx: 13:44 Appendectomy; Cholecystectomy; hysterectomy; hip (hysterectomy); hand (Anemia); as6 13:45 Ligation of fallopian tube; as6 - Immunization history:: Adult Immunizations up to date. - Infectious Disease History:: Denies. - Social history:: Smoking status: Patient denies any tobacco usage or history of. Screenin:20 [facility] ED Fall Risk Assessment (Adult) History of falling in the last 3 months, db including since admission No falls in past 3 months (0 pts) Confusion or Disorientation No (0 pts) Intoxicated or Sedated No (0 pts) Impaired Gait No (0 pts) Mobility Assist Device Used No (0 pt) Altered Elimination No (0 pt) Score/Fall Risk Level 0 - 2 = Low Risk Oriented to surroundings, Maintained a safe environment. Abuse screen: Denies threats or abuse. Denies injuries from another. Nutritional screening: No deficits noted. Tuberculosis screening: No symptoms or risk factors identified. Assessment: 14:12 Reassessment: Patient appears in no apparent distress at this time. Patient and/or db family updated on plan of care and expected duration. Pain level reassessed. Patient is alert, oriented x 3, equal unlabored respirations, skin warm/dry/pink. PT AMBULATORY TO RESTROOM. 15:20 Reassessment: Patient appears in no apparent distress at this time. Patient and/or db family updated on plan of care and expected duration. Pain level reassessed. Patient is alert, oriented x 3, equal unlabored respirations, skin warm/dry/pink. Reassessment: Patient states feeling better. General: Appears in no apparent distress. comfortable, Behavior is calm, cooperative. Respiratory: Airway is patent. GI: Abdomen is flat. Vital Signs: 13:42 BP 135 / 91; Pulse 89; Resp 18; Temp 98.5(O); Pulse Ox 97% on R/A; Weight 72.57 kg (R); as6 Height 5 ft. 10 in. (R); Pain 6/10; 14:00 BP 129 / 95; Pulse 71; Resp 18; Temp 98.4; Pulse Ox 99% on R/A; db 15:02 BP 125 / 90; Pulse 75; Resp 19; Pulse Ox 99% on R/A; rs5 13:42 Body Mass Index 22.96 (72.57 kg, 177.8 cm) as6 13:42 Pain Scale: Adult as6 ED Course: 13:38 Patient arrived in ED. im 13:39 Adam Watson MD is Attending Physician. ec2 13:44 Triage completed. as6 13:45 Arm band placed on right wrist. as6 13:55 Oscar Hicks, HAYLEY is Primary Nurse. rs5 14:26 Pelvis XRAY In Process Unspecified. EDMS 15:20 Patient has correct armband on for positive identification. Bed in low position. Call db light in reach. Side rails up X 1. Provided Education on: DISCHARGE. Pulse ox on. NIBP on. Warm blanket given. 15:20 No provider procedures requiring assistance completed. IV discontinued, intact, db bleeding controlled, No redness/swelling at site. Administered Medications: 14:12 Drug: Ketorolac IVP 15 mg IVP once Route: IVP; Site: right antecubital; db 15:23 Follow up: Response: No adverse reaction db 14:12 Drug: Acetaminophen PO 1000 mg PO once Route: PO; db 15:22 Follow up: Response: No adverse reaction db Medication: 15:20 VIS not applicable for this client. db Outcome: 15:14 Discharge ordered by . ec2 15:20 Discharged to home ambulatory, with family, db 15:20 Condition: stable 15:20 Discharge instructions given to patient, Instructed on discharge instructions, follow up and referral plans. 15:23 Patient left the ED. db Signatures: Dispatcher [employer] EDSaurabh Duenas RN RN as6 Jodee Cook RN RN db Oscar Hicks, HAYLEY RN rs5 Chloe Garcia Edwin, MD MD ec2
[2023-08-22 17:03] VITALS: BP 129/95; TEMP 98.4; O2SAT 99
== END 2023-08-22 15:23 | disposition home or self-care (01) ==
LOC: ER 13:34
DX: M25.551 Pain in right hip (principal)
CPT/HCPCS: 36415; 72170; 80048; 81001; 85025; 96374; 99284

== ENCOUNTER 2025-01-19 02:26 | Emergency (ER) | payer BC ==
[2025-01-19 03:17] LABS: Sqamous Epithelial <5 /HPF (None Seen); Urine Culture Reflex Order NOT NEEDED; Urine Microscopic Reflex YN ORDER UMIC
[2025-01-19 03:28] LABS: Anion Gap 7.0 mEq/L (5.0-15.0); BUN Blood Urea Nitrogen 23.0 mg/dL (7-18); Glucose Level 99.0 mg/dL (74-106); Potassium 4.0 mEq/L (3.5-5.1)
[2025-01-19 03:38] LABS: Absolute Lymphocytes (CBC) 3.0 K/uL (0.7-4.9); Hematocrit 41.7 % (36.0-45.0); Hemoglobin 14.2 g/dL (12.0-15.0); MCH 32.6 pg (27.0-35.0); MCHC 34.1 g/dL (32.0-36.0); MCV 95.4 fL (80-100); MPV 8.3 fL (7.6-11.3); Nucleated RBC Absolute Count 0.0 (0-0); Nucleated Red Blood Cells % 0.1 % (0-0); RBC Red Blood Cell Count 4.37 M/uL (3.86-4.86); White Blood Count 7.40 thou/uL (4.3-10.9)
--- NOTE | 2025-01-19 03:41 | ER ---
Nurse's Notes [facility] Name: Pricila Whitley Age: 59 yrs Sex: Female : 1965 Arrival Date: 01/19/2025 Time: 02:26 Bed 6 Private MD: Diagnosis: Low back pain Presentation: 01/19 02:30 Chief complaint: Patient states: LOWER BACK PAIN, ODOR IN URINE. ha1 02:30 Coronavirus screen: Client denies travel out of the [place] in the last 14 days. Ebola ha1 Screen: No symptoms or risks identified at this time. Initial Sepsis Screen: Does the patient meet any 2 criteria? No. Patient's initial sepsis screen is negative. Does the patient have a suspected source of infection? No. Patient's initial sepsis screen is negative. Risk Assessment: Do you want to hurt yourself or someone else? Patient reports no desire to harm self or others. Onset of symptoms was January 18, 2025. 02:30 Method Of Arrival: Ambulatory ha1 02:30 Acuity: AMERICO 3 ha1 Triage Assessment: 02:30 General: Appears uncomfortable, Behavior is calm, cooperative. Pain: Complains of pain ha1 in low back area Pain currently is 4 out of 10 on a pain scale. Quality of pain is described as aching. Neuro: Level of Consciousness is awake, alert, obeys commands, Oriented to person, place, time, situation. Cardiovascular: Capillary refill < 3 seconds Patient's skin is warm and dry. Respiratory: Airway is patent Respiratory effort is even, unlabored, Respiratory pattern is regular, symmetrical. GI: No signs and/or symptoms were reported involving the gastrointestinal system. : Reports ODOR IN URINE. Historical: - Allergies: 03:00 Benadryl; lg3 - PMHx: 03:00 adhd; Anemia; lg3 - PSHx: 03:00 Appendectomy; Cholecystectomy; hand (Anem); hip (ec); hysterectomy; Ligation of lg3 fallopian tube; - Immunization history:: Adult Immunizations up to date. - Infectious Disease History:: Denies. - Social history:: Smoking status: Patient reports the use of cigarette tobacco products, smokes one-half pack cigarettes per day, Patient/guardian denies using alcohol, street drugs. Screenin:00 [facility] ED Fall Risk Assessment (Adult) History of falling in the last 3 months, lg3 including since admission No falls in past 3 months (0 pts) Confusion or Disorientation No (0 pts) Intoxicated or Sedated No (0 pts) Impaired Gait No (0 pts) Mobility Assist Device Used No (0 pt) Altered Elimination No (0 pt) Score/Fall Risk Level 0 - 2 = Low Risk Oriented to surroundings, Maintained a safe environment, Educated pt \T\ family on fall prevention, incl call for assistance when getting out of bed, Assessed \T\ reinforced patient's understanding of fall precautions. Abuse screen: Denies threats or abuse. Denies injuries from another. Nutritional screening: No deficits noted. Tuberculosis screening: No symptoms or risk factors identified. Assessment: 02:58 General: Appears in no apparent distress. uncomfortable, Behavior is calm, cooperative. lg3 Pain: Complains of pain in low back area Pain currently is 4 out of 10 on a pain scale. Neuro: No deficits noted. Kaur Agitation-Sedation Scale (RASS): 0 - Alert and Calm Level of Consciousness is awake, alert, obeys commands, Oriented to person, place, time, situation. Cardiovascular: No deficits noted. Denies chest pain, shortness of breath, Capillary refill < 3 seconds Clubbing of nail beds is absent JVD is absent Patient's skin is warm and dry. Respiratory: No deficits noted. Airway is patent Respiratory effort is even, unlabored, Respiratory pattern is regular, symmetrical. GI: No deficits noted. No signs and/or symptoms were reported involving the gastrointestinal system. Abdomen is round non-distended, Bowel sounds present X 4 quads. Abd is soft and non tender X 4 quads. : Reports urine odor. EENT: No deficits noted. No signs and/or symptoms were reported regarding the EENT system. Derm: No deficits noted. No signs and/or symptoms reported regarding the dermatologic system. Skin is intact, is healthy with good turgor, Skin is dry, Skin is normal, Skin temperature is warm. Musculoskeletal: Circulation, motion, and sensation intact. Range of motion: intact in all extremities, Reports pain in low back area. 04:03 Reassessment: No changes from previously documented assessment. Patient and/or family kb4 updated on plan of care and expected duration. Pain level reassessed. Patient is alert, oriented x 3, equal unlabored respirations, skin warm/dry/pink. Vital Signs: 02:30 BP 147 / 94; Pulse 74; Resp 18 S; Temp 98; Pulse Ox 100% on R/A; Weight 74.84 kg; ha1 Height 5 ft. 10 in. ; Pain 4/10; 03:15 BP 109 / 74; Pulse 74; Resp 18; Pulse Ox 100% ; kb4 04:00 BP 113 / 69; Pulse 71; Resp 18; Pulse Ox 100% ; kb4 02:30 Body Mass Index 23.67 (74.84 kg, 177.8 cm) ha1 02:30 Pain Scale: Adult ha1 ED Course: 02:31 Patient arrived in ED. gm2 02:38 Bonifacio Carlin DO is Attending Physician. tt7 02:49 Claritza Higginbotham, RN is Primary Nurse. kb4 03:00 Patient has correct armband on for positive identification. Placed in gown. Bed in low lg3 position. Call light in reach. Side rails up X 1. Client placed on continuous cardiac and pulse oximetry monitoring. NIBP monitoring applied. Door closed. Noise minimized. Warm blanket given. Pillow given. Family accompanied patient. 03:00 Inserted saline lock: 20 gauge in left wrist, using aseptic technique. lg3 03:03 Triage completed. ha1 04:05 Arm band placed on. kb4 04:05 No provider procedures requiring assistance completed. IV discontinued, intact, kb4 bleeding controlled, No redness/swelling at site. Pressure dressing applied. 04:06 Provided Education on: d/c. kb4 Administered Medications: 03:53 CANCELLED (Inappropriate at this time): droPERidol 5 mg IM once tt7 04:00 Drug: Ketorolac IVP 15 mg IVP once Route: IVP; Site: left wrist; lg3 04:04 Follow up: Response: No adverse reaction kb4 04:06 Follow up: Response: No adverse reaction lg3 04:00 Drug: Acetaminophen PO 1000 mg PO once Route: PO; lg3 04:04 Follow up: Response: No adverse reaction kb4 04:00 Drug: Methocarbamol PO 500 mg PO once Route: PO; lg3 04:04 Follow up: Response: No adverse reaction kb4 Medication: 03:00 VIS not applicable for this client. lg3 Outcome: 03:40 Discharge ordered by MD. tt7 04:05 Discharged to home ambulatory, kb4 04:05 Condition: good 04:05 Discharge instructions given to patient, Instructed on discharge instructions, follow up and referral plans. medication usage, Demonstrated understanding of instructions, follow-up care, medications, Prescriptions given X 1, 04:06 Patient left the ED. kb4 Signatures: Liz Wellington RN RN lg3 Sasha Osman RN RN ha1 Nahed Velázquez 2 Claritza Higginbotham RN RN kb4 Bonifacio Carlin DO DO tt7 Corrections: (The following items were deleted from the chart) 03:04 02:30 Acuity: AMERICO 2 ha1 ha1
--- NOTE | 2025-01-19 03:41 | EDPHYS ---
Physician Documentation [facility] Name: Pricila Whitley Age: 59 yrs Sex: Female : 1965 Arrival Date: 01/19/2025 Time: 02:26 Bed 6 Private MD: ED Physician Bonifacio Carlin HPI: 01/19 03:08 This 59 yrs old Female presents to ER via Ambulatory with complaints of Low Back Pain, tt7 Urinary Problem. 03:08 Patient reports lower back pain which started yesterday afternoon, has gradually been tt7 worsening since then, she states is an achy sensation that feels similar to the last time she had pyelonephritis. She denies dysuria or urinary frequency but states that she has not had those symptoms with past urinary infections. She denies fever. Reports occasional nausea but no vomiting. Historical: - Allergies: 03:00 Benadryl; lg3 - PMHx: 03:00 adhd; Anemia; lg3 - PSHx: 03:00 Appendectomy; Cholecystectomy; hand (Anem); hip (ec); hysterectomy; Ligation of lg3 fallopian tube; - Immunization history:: Adult Immunizations up to date. - Infectious Disease History:: Denies. - Social history:: Smoking status: Patient reports the use of cigarette tobacco products, smokes one-half pack cigarettes per day, Patient/guardian denies using alcohol, street drugs. ROS: 03:09 Constitutional: negative for fever. Cardiovascular: negative for chest pain. tt7 Respiratory: negative for shortness of breath. MS/Extremity: negative for injury and deformity. Skin: negative for rash. Neuro: negative for focal weakness. 03:09 Abdomen/GI: Positive for nausea, Negative for abdominal pain, vomiting, Exam: 03:10 Constitutional: vital signs reviewed, well appearing. Head/Face: normocephalic, tt7 atraumatic. Eyes: no conjunctival injection, anicteric sclerae. ENT: mucus membranes moist. Neck: trachea midline, no JVD, no meningismus. 03:10 Abdomen/GI: soft, nondistended, nontender, no guarding or rebound, negative Barnhart's sign, no McBurney point tenderness. Skin: warm, dry, intact, normal turgor, normal color, no rash. MS/ Extremity: normal ROM of extremities, no gross deformities. Neuro: alert and oriented with appropriate mental status, normal speech, follows commands, no focal neurologic deficits. Psych: appropriate mood and affect. 03:10 Cardiovascular: Rate: normal, Rhythm: regular, Edema: is not appreciated, 03:10 Respiratory: the patient does not display signs of respiratory distress, Respirations: normal, Respiratory rate: 18 03:10 Back: CVA tenderness, that is mild, is noted on the right, Vital Signs: 02:30 BP 147 / 94; Pulse 74; Resp 18 S; Temp 98; Pulse Ox 100% on R/A; Weight 74.84 kg; ha1 Height 5 ft. 10 in. ; Pain 4/10; 03:15 BP 109 / 74; Pulse 74; Resp 18; Pulse Ox 100% ; kb4 04:00 BP 113 / 69; Pulse 71; Resp 18; Pulse Ox 100% ; kb4 02:30 Body Mass Index 23.67 (74.84 kg, 177.8 cm) ha1 02:30 Pain Scale: Adult ha MDM: 02:38 Medical Screening Exam initiated tt7 03:11 Differential diagnosis: strain, contusion, UTI. Data reviewed: vital signs, nurses tt7 notes, lab test result(s). 03:48 ED course: Laboratory studies are reassuring, no clinically significant findings, tt7 urinalysis not very convincing for infection, will treat patient for musculoskeletal low back pain with Toradol, Tylenol, Robaxin, after completion of the patient's emergency department evaluation, I do not suspect a life-threatening or disabling process. Patient is medically stable and not in need of emergent medical intervention. I had a detailed discussion with the patient regarding the historical points, exam findings, emergency department evaluation, diagnostic results, and the discharge diagnosis. I instructed the patient on outpatient management of their condition. I discussed the need for outpatient follow-up with a primary care physician. I informed the patient on return precautions, including the need to return to the ED if symptoms do not improve, worsen, or if there are any questions or concerns that arise at home. The patient was discharged in stable condition. 01/19 03:02 Order name: CBC with Diff; Complete Time: 03:39 tt7 01/19 03:02 Order name: BMP; Complete Time: 03:38 tt7 01/19 03:02 Order name: UA Rfx Arsenio Cult if indicated; Complete Time: 03:21 tt7 01/19 03:09 Order name: IV Start; Complete Time: 03:10 lg3 Administered Medications: 03:53 CANCELLED (Inappropriate at this time): droPERidol 5 mg IM once tt7 04:00 Drug: Ketorolac IVP 15 mg IVP once Route: IVP; Site: left wrist; lg3 04:04 Follow up: Response: No adverse reaction kb4 04:06 Follow up: Response: No adverse reaction lg3 04:00 Drug: Acetaminophen PO 1000 mg PO once Route: PO; lg3 04:04 Follow up: Response: No adverse reaction kb4 04:00 Drug: Methocarbamol PO 500 mg PO once Route: PO; lg3 04:04 Follow up: Response: No adverse reaction kb4 Disposition: 03:56 Co-signature as Attending Physician, Bonifacio Carlin DO. tt7 Disposition Summary: 01/19/25 03:40 Discharge Ordered Notes: Location: Home tt7 Problem: new tt7 Symptoms: have improved tt7 Condition: Stable tt7 Diagnosis - Low back pain tt7 Followup: tt7 - With: Emergency Department - When: As needed - Reason: Followup: tt7 - With: Private Physician - When: 2 - 3 days - Reason: Recheck today's complaints, Re-evaluation by your physician Discharge Instructions: - Discharge Summary Sheet tt7 - Acute Back Pain, Adult tt7 Forms: - Medication Reconciliation Form tt7 - Antibiotic Education tt7 - Prescription Opioid Use tt7 - Patient Portal Instructions tt7 - Leadership Thank You Letter tt7 Prescriptions: - methocarbamol 500 mg Oral tablet - take 1 tablet ORAL route 3 times per day As needed; 20 tablet; Refills: 0, tt7 Product Selection Permitted Signatures: Dispatcher [employer] EDMS Liz Wellington RN RN lg3 Claritza Higginbotham RN RN kb4 Bonifacio Carlin DO DO tt7 Corrections: (The following items were deleted from the chart) 03:03 03:03 CBC+H.LAB.BRZ ordered. EDMS EDMS 03:03 03:03 BASIC METABOLIC PANEL+C.LAB.BRZ ordered. EDMS EDMS 03:03 03:03 UA Rfx Arsenio Cult if indicated+U.LAB.BRZ ordered. EDMS EDMS 03:53 03:51 droPERidol 5 mg IM once ordered. tt7 tt7
[2025-01-19] MEDS ORDERED: ACETAMINOPHEN 500 MG TAB ONE (03:44)
[2025-01-19] MEDS ORDERED: KETOROLAC 30 MG/ML INJ ONE (03:44)
[2025-01-19 04:45] VITALS: TEMP 98; O2SAT 100
[2025-01-19 04:48] VITALS: BP 113/69
== END 2025-01-19 04:06 | disposition home or self-care (01) ==
LOC: ER 02:26
DX: M54.50 Low back pain, unspecified (principal); R11.0 Nausea; F17.210 Nicotine dependence, cigarettes, uncomplicated
CPT/HCPCS: 36415; 80048; 81001; 85025; 96374; 99284; J1885